=== PATIENT | female | born 1960 | race Hispanic/Latino ===

== ENCOUNTER → 2018-08-16 | Day surgery (SDC) | payer SELFPAY ==
--- OUTSIDE RECORDS SUMMARY | 2018-08-16 08:59 | XMS REPORT ---
:1960 [facility] Address [address] [place] [address] Dr. Lopez. [address] [place] [address] Care Team Providers Name Role Phone Unavailable Unavailable Unavailable Problems This patient has no known problems. Allergies, Adverse Reactions, Alerts This patient has no known allergies or adverse reactions. Medications This patient has no known medications.
--- NOTE | 2018-08-16 12:37 | RAD REPORT ---
EXAM DESCRIPTION: US - Breast Core BX w/US Guidance - 08/16/2018 10:26 am CLINICAL HISTORY: ICD R92.8/C 50.919. COMPARISON: Ultrasound August 04, 2018. TECHNIQUE: The risks, benefits and alternatives to the procedure were explained to the patient and i nformed consent obtained. The skin and subcutaneous tissues were anesthetized with Lidocaine. The palpable mass within the inne r upper right breast was localized under sonographic guidance, three 2 cm core specimens were obtaine d into the mass using 12 cm vacuum core assisted biopsies. Specimens given to pathology. The previously described second 8 mm hypoechoic mass within the lower outer periareolar region of the right breast could not be definitively localized under ultrasound so this was not biopsied. The patient experienced no immediate complication. IMPRESSION: Vacuum assisted core biopsies of the palpable mass within the upper inner right breast.
--- NOTE | 2018-08-16 12:44 | RAD REPORT ---
EXAM DESCRIPTION: US - Breast Core BX w/US Guidance - 08/16/2018 10:26 am CLINICAL HISTORY: ICD R92.8/C50.919. COMPARISON: Ultrasound August 04, 2018. TECHNIQUE: The risks, benefits and alternatives to the procedure were explained to the patient and i nformed consent obtained. Under sonographic guidance to the 9 mm mass within the outer left breast was localized. Skin and subc utaneous tissues were anesthetized with lidocaine. Under sonographic guidance, two 2 cm core biopsies of the mass were obtained and given to pathology. The patient experienced immediate complication. Subsequently a localizing clip was placed into the ma ss. IMPRESSION: Vacuum assisted core biopsies of the 9 mm mass within the left breast.
== END ==
LOC: DS 08:57
PROVIDERS: ATTEND Internal Medicine
PROC: 0HBV3ZX Excision of Bilateral Breast, Percutaneous Approach, Diagnostic (ICD-10-PCS; principal; 2018-08-16)
DX: C50.911 Malignant neoplasm of unspecified site of right female breast (principal); Z17.0 Estrogen receptor positive status [ER+]; D24.2 Benign neoplasm of left breast
CPT/HCPCS: 19083; 88305